=== PATIENT | male | born 2000 | race Caucasian/White ===

== ENCOUNTER 2022-03-05 17:03 | Emergency (ER) | payer BC, SELFPAY ==
[2022-03-05 17:16] VITALS: BP 99/71; PULSE 73; RESP 24; TEMP 36.5; O2SAT 100; BMI 26.6
--- NOTE | 2022-03-05 17:22 | ED.GENADULT ---
HPI - General Adult General Time Seen by Provider: 17:22 Date Seen: 03/05/22 Chief complaint: Nausea/Vomiting Stated complaint: Vomiting, Loose Stool, Feeling Faint Time Seen by Provider: 03/05/22 17:13 Source: patient and family Mode of arrival: ambulatory Limitations: no limitations History of Present Illness HPI narrative: 22-year-old male who presents today with nausea, vomiting, diarrhea. This started about 6 hours prior to coming emergency department. No blood in the stools or or vomit. No ill contacts. Denies fever. No urinary symptoms. Related Data Allergies Allergy/AdvReac Type Severity Reaction Status Date / Time amoxicillin Allergy Verified 03/05/22 17:16 Penicillins Allergy Verified 03/05/22 17:16 bees Allergy Uncoded 03/05[facility]22 [facility] Smoking Status: Current some day smoker What tobacco products do you use: cigarettes Do you use any of these nicotine containing products: None Second hand tobacco smoke exposure: No How often do you have a drink containing alcohol: 2-4 times a month How many standard drinks containing alcohol do you have on a typical day: 5 or 6 How often do you have six or more drinks on one occasion: Monthly AUDIT-C Alcohol total score: 6 Non-prescribed substance use: denies use service: No Exam Narrative: Exam Narrative: General: Well-developed and well-nourished, no acute distress Head: Atraumatic and normocephalic Eyes: Pupils are equal reactive, extraocular motions intact, conjunctiva clear ENT: External nose and ears are normal, posterior pharynx without erythema or exudate Neck: No midline cervical tenderness, full spontaneous range of motion the neck, trachea midline, no adenopathy Heart: Regular rate and rhythm no murmurs or thrills Lungs: Clear to auscultation bilaterally without wheezes or crackles Abdomen: Soft, diffuse tenderness with no focal tenderness in the right lower quadrant or epigastric, nondistended with active bowel sounds Musculoskeletal: No tenderness, deformity, or edema Neurologic: Awake, alert, and oriented x3, no gross focal neurologic deficits, cranial nerves intact as tested Psych: Mood and affect are appropriate Skin: No rashes Const: Vital Signs, click to edit/add: Vital Signs - 24 hr 03/05/22 17:16 03/05/22 18:20 Temperature 97.7 F Pulse Rate [Pulse Oximeter] 73 Respiratory Rate 24 22 Blood Pressure [Ri ght Upper Arm] 99/71 115/70 Pulse Oximetry 100 Oxygen Delivery Me thod Room Air Course Course Hospital Course: Patient seen examined, patient presents today with weakness, vomiting, diarrhea. On initial exam, but blood pressures are little bit low. Mild generalized tenderness, no focal right lower quadrant tenderness. Zofran ordered along with fluids. Given absence of focal tenderness as well as abrupt onset of vomiting and diarrhea, symptoms are most consistent with start neuritis. No imaging indicated at this time Reevaluation(s) Reevaluation #1: Basic panel is reassuring, labs independently interpreted by me. Patient feels better after fluids. Will be discharged with Zofran and can use Imodium for diarrhea. Time: 18:40 Vital Signs Vital signs: Initial Vital Signs Temperature 97.7 F 03/05/22 17:16 Temperature Source Temporal Artery Scan 03/05/22 17:16 Pulse Rate 73 03/05/22 17:16 Pulse Rhythm 03/05/22 17:16 Respiratory Rate 24 03/05/22 17:16 Blood Pressure 99/71 03/05/22 17:16 Blood Pressure Mean 80 03/05/22 17:16 Blood Pressure Position Supine 03/05/22 17:16 Pulse Oximetry 100 03/05/22 17:16 Oxygen Delivery Method 03/05/22 17:16 Vital Signs Temperature 97.7 F 03/05/22 17:16 Pulse Rate 73 03/05/22 17:16 Respiratory Rate 24 03/05/22 17:16 Blood Pressure 99/71 03/05/22 17:16 Pulse Oximetry 100 03/05/22 17:16 Oxygen Delivery Method 03/05/22 17:16 Temperature 97.7 F 03/05/22 17:16 Pulse Rate 73 03/05/22 17:16 Respiratory Rate 22 03/05/22 18:20 Blood Pressure 115/70 03/05/22 18:20 Pulse Oximetry 100 03/05/22 17:16 Oxygen Delivery Method 03/05/22 17:16 Medical Decision Making Lab Data Labs: Lab Results 03/05/22 Range/Units 17:55 Sodium 138 (135-149) mmol/L Potassium 3.9 (3.6-5.1) mmol/L Chloride 105 (96-114) mmol/L Carbon Dioxide 20 (20-32) mmol/L BUN 19 (5-24) mg/dL Creatinine 1.0 (0.5-1.5) mg/dL Estimated Creat Clear 113.05 Estimated GFR 110 ml/min Glucose 128 H (60-115) mg/dL Calcium 9.7 (8.4-10.6) mg/dL Magnesium 1.5 (1.5-2.6) mg/dL Discharge Plan Discharge Clinical Impression: Gastroenteritis Patient Disposition: Home, Self-Care Condition: Stable Instructions: Gastroenteritis (DC) Additional Instructions: Liquid diet for 24 hours. Take Zofran as needed for nausea vomiting, you can take counter Imodium for diarrhea. Activity Level: No Restrictions Discharge Diet: Full Liquid Stand Alone Forms: MyHealth Info Instructions
[2022-03-05] MEDS: ONDANSETRON 2 MG/ML inj 4 MG IVP (18:00)
[2022-03-05] MEDS: 0.9 % SODIUM CHLORIDE 1000 ml 1,000 ML IV (18:00)
[2022-03-05 18:18] LABS: Chloride* 105 mmol/L (96-114); Potassium* 3.9 mmol/L (3.6-5.1); Sodium* 138 mmol/L (135-149)
[2022-03-05 18:20] VITALS: BP 115/70; RESP 22
[2022-03-05 18:20] LABS: Est. Creatinine Clearance* 113.05; Estimated Glomerular Filt Rate 110 ml/min
[2022-03-05 18:21] LABS: Blood Urea Nitrogen* 19 mg/dL (5-24); Calcium* 9.7 mg/dL (8.4-10.6); Carbon Dioxide* 20 mmol/L (20-32); Glucose* 128 mg/dL (60-115); Magnesium* 1.5 mg/dL (1.5-2.6)
== END 2022-03-05 18:55 | disposition home or self-care (01) ==
LOC: ED 18:11
PROVIDERS: Emergency Provider Family Medicine
DX: K52.9 Noninfective gastroenteritis and colitis, unspecified (principal)
CPT/HCPCS: 36415; 80048; 83735; 96374; 99283; 99284; J2405; J7030